=== PATIENT | female | born 2000 | race Caucasian/White ===

== ENCOUNTER 2024-01-23 12:51 | Outpatient (CLI) | payer OTHER, SELFPAY ==
[2024-01-23 14:00] LABS: Beta HCG Quantitative < 2.39 mIU/ML
== END 2024-01-23 12:52 | disposition home or self-care (01) ==
LOC: ANHLAB 12:53
PROVIDERS: PCP Clinical Nurse Specialist; Visit Provider Obstetrics & Gynecology
DX: Z30.9 Encounter for contraceptive management, unspecified (principal)
CPT/HCPCS: 36415; 84702